=== PATIENT | male | born 1980 | race Caucasian/White ===

== ENCOUNTER 2024-03-09 22:55 | Emergency (ER) | payer OTHER ==
[2024-03-10] MEDS ORDERED: METOCLOPRAMIDE 10 MG/2mL INJ ONE (00:18)
[2024-03-10] MEDS ORDERED: DIPHENHYDRAMINE 50 MG/ML VIAL ONE (00:18)
[2024-03-10 00:49] LABS: Absolute Lymphocytes (CBC) 0.8 K/uL (0.7-4.9); Absolute Neutrophil 5.4 K/uL (1.8-8.0); Basophils % 0.1 % (0-1.3); Eosinophils % 0.2 % (0-4.4); Hematocrit 41.6 % (39.6-49.0); Hemoglobin 14.5 g/dL (13.6-17.9); Lymphocytes % 11.2 % (15.3-44.8); MCH 30.3 pg (27.0-35.0); MCHC 34.8 g/dL (32.0-36.0); MCV 86.9 fL (80-100); MPV 7.8 fL (7.6-11.3); Monocytes % 14.4 % (3.3-12.3); Neutrophils % 74.1 % (41.7-73.7); Nucleated Red Blood Cells % 0.2 % (0-0); Platelets 178 thou/uL (152-406); RBC Red Blood Cell Count 4.78 M/uL (4.33-5.43); Red Cell Distribution Width 14.2 % (12.1-15.2)
[2024-03-10 00:51] LABS: PT Prothrombin Time 12.9 SECONDS (9.4-12.5); Protime INR 1.18
[2024-03-10 01:11] LABS: SARS-CoV-2 Antigen CONTROL BLUE LINE VIS/BG OK
[2024-03-10 01:12] LABS: SARS-CoV-2 Antigen Rapid Res Positive (Negative)
[2024-03-10 01:28] LABS: Albumin 4.1 g/dL (3.4-5.0); Albumin/Globulin Ratio 1.2 (1.1-1.8); Bilirubin Total 0.9 mg/dL (0.2-1.0); Globulin 3.3 g/dL (2.3-3.5); Protein, Total 7.4 g/dL (6.4-8.2); Troponin High Sensitivity 5.1 pg/mL (<58.9)
[2024-03-10] MEDS ORDERED: NA CHLORIDE 0.9% 1,000 ML ONE (01:37)
--- NOTE | 2024-03-10 02:19 | EDPHYS ---
Physician Documentation [facility] Name: Brady Harrell Age: 43 yrs Sex: Male : 1980 Arrival Date: 03/09/2024 Time: 22:55 Bed 13 Private MD: ED Physician Eliezer Rosas HPI: 03/10 00:07 This 43 yrs old Male presents to ER via Ambulatory with complaints of Shortness Of rt Breath, Fever, Cough. 00:07 Patient presents to the ED with cough, nasal congestion, subjective fevers starting rt yesterday. Denies chest pain, difficulty breathing. Denies other acute complaints, symptoms are moderate in severity, no other aggravating or alleviating factors.. Historical: - Allergies: 03/09 23:14 PENICILLINS; as6 - PMHx: 23:14 Asthma; lymphomia; as6 - PSHx: 23:14 Appendectomy; Tonsillectomy; as6 - Immunization history:: Adult Immunizations up to date. - Infectious Disease History:: Denies. - Social history:: Smoking status: Patient denies any tobacco usage or history of. - Family history:: not pertinent. ROS: 03/10 00:07 Abdomen/GI: Negative for abdominal pain, nausea, vomiting, diarrhea, and constipation, rt MS/Extremity: Negative for injury and deformity, Skin: Negative for injury, rash, and discoloration, Neuro: Negative for headache, weakness, numbness, tingling, and seizure, Constitutional: Positive for fever, malaise, ENT: Positive for rhinorrhea, Negative for sore throat, Respiratory: Positive for cough, Negative for shortness of breath, Exam: 00:07 Constitutional: This is a well developed, well nourished patient who is awake, alert, rt and in no acute distress. Head/Face: Normocephalic, atraumatic. Chest/axilla: Normal chest wall appearance and motion. Nontender with no deformity. No lesions are appreciated. Cardiovascular: Regular rate and rhythm with a normal S1 and S2. No gallops, murmurs, or rubs. Normal PMI, no JVD. No pulse deficits. Respiratory: Lungs have equal breath sounds bilaterally, clear to auscultation and percussion. No rales, rhonchi or wheezes noted. No increased work of breathing, no retractions or nasal flaring. Abdomen/GI: Soft, non-tender, with normal bowel sounds. No distension or tympany. No guarding or rebound. No evidence of tenderness throughout. Skin: Warm, dry with normal turgor. Normal color with no rashes, no lesions, and no evidence of cellulitis. MS/ Extremity: Pulses equal, no cyanosis. Neurovascular intact. Full, normal range of motion. Neuro: Awake and alert, GCS 15, oriented to person, place, time, and situation. Cranial nerves II-XII grossly intact. Motor strength 5/5 in all extremities. Sensory grossly intact. Cerebellar exam normal. Normal gait. 00:53 ECG was reviewed by the Attending Physician. rt Vital Signs: 03/09 23:13 BP 141 / 93; Pulse 110; Resp 18 S; Temp 100.1(O); Pulse Ox 94% on R/A; Weight 99.79 kg as6 (R); Height 5 ft. 11 in. (R); Pain 0/10; 03/10 00:30 BP 143 / 101; Pulse 100; Resp 24 S; Pulse Ox 95% on R/A; jw7 01:30 BP 138 / 93; Pulse 99; Resp 23 S; Pulse Ox 94% on R/A; jw7 02:31 BP 119 / 74; Pulse 97; Resp 19 S; Temp 98.9(O); Pulse Ox 98% on R/A; jw7 03/09 23:13 Body Mass Index 30.68 (99.79 kg, 180.34 cm) as6 03/09 23:13 Pain Scale: Adult as6 MDM: 03/09 23:22 Patient medically screened. rt 03/10 01:42 Differential diagnosis: Viral infection, pneumonia, COVID, flu, dehydration. Antibiotic rt administration: Not indicated, the patient does not have an appreciated infiltrate. Data reviewed: vital signs, nurses notes, lab test result(s), EKG, radiologic studies. Consideration of Admission/Observation Escalation of care including admission/observation considered. Patient with normal oxygenation, no signs of bacterial infection, symptoms likely due to COVID-19. Patient is found to have elevated creatinine, likely due to poor p.o. intake. I discussed this at length with the patient. Do not believe that he requires admission for LUIS at this time, was given a bag of fluids, structured to increase oral intake and to have labs repeated as a follow-up.. I considered the following discharge prescriptions or medication management in the emergency department Medications were administered in the Emergency Department. See MAR. Independent interpretation of the following test(s) in the Emergency Department X-Ray: My interpretation is No pneumonia seen on my interpretation of x-ray images. Care significantly affected by the following chronic conditions: Asthma. Counseling: I had a detailed discussion with the patient and/or guardian regarding the historical points, exam findings, and any diagnostic results supporting the discharge/admit diagnosis, lab results, radiology results, the need for outpatient follow up, to return to the emergency department if symptoms worsen or persist or if there are any questions or concerns that arise at home. Response to treatment: the patient's symptoms have markedly improved after treatment. 03/09 23:29 Order name: CBC with Diff; Complete Time: 01: rt 03/09 23:29 Order name: CMP; Complete Time: : rt 03/09 23:29 Order name: Lactate w/ 2H reflex if indic.; Complete Time: rt 03/09 23:29 Order name: Protime (+inr); Complete Time: : rt 03/09 23:29 Order name: Ptt, Activated; Complete Time: : rt 03/09 23:29 Order name: Troponin High Sensitivity; Complete Time: : rt 03/09 23:29 Order name: BNP; Complete Time: : rt 03/09 23:29 Order name: SARS RAPID; Complete Time: 01: rt 03/09 23:29 Order name: Influenza Screen (a \T\ B); Complete Time: : rt 03/10 00:59 Order name: Glucose, Ancillary Testing; Complete Time: 01:09 EDMS 03/09 23:29 Order name: Chest Single View XRAY rt 03/09 23:29 Order name: EKG; Complete Time: 23:30 rt 03/09 23:29 Order name: Accucheck; Complete Time: 00:49 rt 03/09 23:29 Order name: Cardiac monitoring; Complete Time: 00:49 rt 03/09 23:29 Order name: EKG - Nurse/Tech; Complete Time: 00:49 rt 03/09 23:29 Order name: IV Saline Lock - Large Bore; Complete Time: 00:30 rt 03/09 23:29 Order name: Labs collected and sent; Complete Time: rt 03/09 23:29 Order name: O2 Per Protocol; Complete Time: rt 03/09 23:29 Order name: O2 Sat Monitoring; Complete Time: rt 03/09 23:29 Order name: Vital Signs; Complete Time: : rt EC:53 Rate is 103 beats/min. Rhythm is regular, Sinus tachycardia with No ectopy, Right rt bundle branch block. QRS [place] is Normal. [place] interval is normal. QRS interval is normal. QT interval is normal. No Q waves. No ST changes noted. Interpreted by me. Administered Medications: 00:30 Drug: metoCLOPramide IVP 10 mg IVP once; over 1 to 2 minutes Route: IVP; Site: right [facility] antecubital; 01:43 Follow up: Response: No adverse reaction; Marked relief of symptoms jw7 00:30 Drug: diphenhydrAMINE IVP 25 mg IVP once Route: IVP; Site: right antecubital; jw7 01:43 Follow up: Response: No adverse reaction; Marked relief of symptoms jw7 01:40 Drug: NS 0.9% IV 1000 ml IV at 1 bolus Per protocol; 1000 mL bolus Route: IV; Rate: 1 jw7 bolus; Site: right antecubital; 02:30 Follow up: Response: No adverse reaction; IV Status: Completed infusion; IV Intake: jw7 1000ml Disposition Summary: 03/10/24 02:18 Discharge Ordered Notes: Location: Home rt Problem: new rt Symptoms: have improved rt Condition: Stable rt Diagnosis - COVID-19 rt - Dehydration rt - Hypokalemia rt Followup: rt - With: Private Physician - When: 2 - 3 days - Reason: Discharge Instructions: - Discharge Summary Sheet rt - Dehydration, Adult rt - Hypokalemia rt - COVID-19 rt Forms: - Medication Reconciliation Form rt - Antibiotic Education rt - Prescription Opioid Use rt - Patient Portal Instructions rt - Leadership Thank You Letter rt Prescriptions: - Potassium Chloride 20 meq Oral Packet - take 1 packet ORAL route once daily 1 packet in 6 (six) ounces of water or rt juice; Take after meal; 3 packet; Refills: 0, Product Selection Permitted Signatures: Dispatcher [facility] Rene Barrios RN RN as6 Waits, Rosie, RN RN jw7 Eliezer Rosas MD MD rt
--- NOTE | 2024-03-10 02:19 | ER ---
Nurse's Notes [facility] Name: Brady Harrell Age: 43 yrs Sex: Male : 1980 Arrival Date: 03/09/2024 Time: 22:55 Bed 13 Private MD: Diagnosis: COVID-19;Dehydration;Hypokalemia Presentation: 03/09 23:15 Chief complaint: Patient states: weakness, fever, fatigue that started yesterday. as6 Coronavirus screen: At this time, the client does not indicate any symptoms associated with coronavirus-19. Ebola Screen: No symptoms or risks identified at this time. Initial Sepsis Screen: Does the patient meet any 2 criteria? HR > 90 bpm. Does the patient have a suspected source of infection? No. Patient's initial sepsis screen is negative. Risk Assessment: Do you want to hurt yourself or someone else? Patient reports no desire to harm self or others. Onset of symptoms was March 08, 2024. 23:15 Acuity: LYNNETTE 2 as6 23:15 Method Of Arrival: Ambulatory as6 Historical: - Allergies: 23:14 PENICILLINS; as6 - PMHx: 23:14 Asthma; lymphomia; as6 - PSHx: 23:14 Appendectomy; Tonsillectomy; as6 - Immunization history:: Adult Immunizations up to date. - Infectious Disease History:: Denies. - Social history:: Smoking status: Patient denies any tobacco usage or history of. - Family history:: not pertinent. Screenin:21 [facility] ED Fall Risk Assessment (Adult) History of falling in the last 3 months, jw7 including since admission No falls in past 3 months (0 pts) Confusion or Disorientation No (0 pts) Intoxicated or Sedated No (0 pts) Impaired Gait No (0 pts) Mobility Assist Device Used No (0 pt) Altered Elimination No (0 pt) Score/Fall Risk Level 0 - 2 = Low Risk Oriented to surroundings, Maintained a safe environment, Educated pt \T\ family on fall prevention, incl call for assistance when getting out of bed. Abuse screen: Denies threats or abuse. Denies injuries from another. Nutritional screening: No deficits noted. Tuberculosis screening: No symptoms or risk factors identified. Assessment: 23:30 General: Appears in no apparent distress. uncomfortable, Behavior is calm, cooperative, jw7 appropriate for age. Pain: Denies pain. Neuro: Level of Consciousness is awake, alert, obeys commands, Oriented to person, place, time, situation, Appropriate for age. Cardiovascular: Reports shortness of breath, Heart tones S1 S2 present Capillary refill < 3 seconds Clubbing of nail beds is absent JVD is absent Patient's skin is warm and dry. Rhythm is sinus tachycardia. Respiratory: Reports shortness of breath cough that is Airway is patent Trachea midline Respiratory effort is even, unlabored, Respiratory pattern is regular, symmetrical, Breath sounds are clear bilaterally. GI: Abdomen is flat, non-distended, Bowel sounds present X 4 quads. Abd is soft and non tender X 4 quads. : No deficits noted. No signs and/or symptoms were reported regarding the genitourinary system. EENT: No deficits noted. No signs and/or symptoms were reported regarding the EENT system. Derm: Skin is intact, is healthy with good turgor, Skin is dry, Skin is normal, Skin temperature is warm. Musculoskeletal: Circulation, motion, and sensation intact. Range of motion: intact in all extremities. 03/10 00:30 Reassessment: Patient appears in no apparent distress at this time. No changes from jw7 previously documented assessment. Patient and/or family updated on plan of care and expected duration. Pain level reassessed. Patient is alert, oriented x 3, equal unlabored respirations, skin warm/dry/pink. 01:30 Reassessment: Patient appears in no apparent distress at this time. Patient and/or jw7 family updated on plan of care and expected duration. Pain level reassessed. Patient is alert, oriented x 3, equal unlabored respirations, skin warm/dry/pink. Patient states feeling better. 02:30 Reassessment: Patient appears in no apparent distress at this time. No changes from jw7 previously documented assessment. Patient and/or family updated on plan of care and expected duration. Pain level reassessed. Patient is alert, oriented x 3, equal unlabored respirations, skin warm/dry/pink. Vital Signs: 03/09 23:13 BP 141 / 93; Pulse 110; Resp 18 S; Temp 100.1(O); Pulse Ox 94% on R/A; Weight 99.79 kg as6 (R); Height 5 ft. 11 in. (R); Pain 0/10; 03/10 00:30 BP 143 / 101; Pulse 100; Resp 24 S; Pulse Ox 95% on R/A; jw7 01:30 BP 138 / 93; Pulse 99; Resp 23 S; Pulse Ox 94% on R/A; jw7 02:31 BP 119 / 74; Pulse 97; Resp 19 S; Temp 98.9(O); Pulse Ox 98% on R/A; jw7 03/09 23:13 Body Mass Index 30.68 (99.79 kg, 180.34 cm) as6 03/09 23:13 Pain Scale: Adult as6 ED Course: 03/09 22:59 Patient arrived in ED. mr 23:11 Rosie Pastrana, RN is Primary Nurse. jw7 23:13 Arm band placed on. as6 23:16 Triage completed. as6 23:21 Eliezer Rosas MD is Attending Physician. rt 23:21 Patient has correct armband on for positive identification. Bed in low position. Call jw7 light in reach. Provided Education on: use of call light. 23:47 Chest Single View XRAY In Process Unspecified. EDMS 03/10 02:30 No provider procedures requiring assistance completed. IV discontinued, intact, jw7 bleeding controlled, No redness/swelling at site. Pressure dressing applied. Administered Medications: 00:30 Drug: metoCLOPramide IVP 10 mg IVP once; over 1 to 2 minutes Route: IVP; Site: right jw7 antecubital; 01:43 Follow up: Response: No adverse reaction; Marked relief of symptoms jw7 00:30 Drug: diphenhydrAMINE IVP 25 mg IVP once Route: IVP; Site: right antecubital; jw7 01:43 Follow up: Response: No adverse reaction; Marked relief of symptoms jw7 01:40 Drug: NS 0.9% IV 1000 ml IV at 1 bolus Per protocol; 1000 mL bolus Route: IV; Rate: 1 jw7 bolus; Site: right antecubital; 02:30 Follow up: Response: No adverse reaction; IV Status: Completed infusion; IV Intake: jw7 1000ml Medication: 02:30 VIS not applicable for this client. jw7 Intake: 02:30 IV: 1000ml; Total: 1000ml. jw7 Outcome: 02:18 Discharge ordered by . rt 02:30 Discharged to home ambulatory, jw7 02:30 Condition: stable 02:30 Discharge instructions given to patient, Instructed on discharge instructions, follow up and referral plans. medication usage, Demonstrated understanding of instructions, follow-up care, medications, Prescriptions given X 1, 02:31 Patient left the ED. jw7 Signatures: Dispatcher [employer] JoshuaPinky, Reg Reg mr Rene Baer RN RN as6 Rosie Pastrana RN RN jw7 Eliezer Rosas MD MD rt
[2024-03-10 02:51] VITALS: BP 119/74; TEMP 98.9; O2SAT 98
--- NOTE | 2024-03-10 17:02 | RAD REPORT ---
EXAM DESCRIPTION: RAD - Chest Single View - 03/09/2024 11:46 pm CLINICAL HISTORY: COUGH COMPARISON: 09/27/2018 FINDINGS: Single frontal radiograph view of the chest. Cardiomediastinal silhouette: Normal size and contour. Lungs: No consolidation, pneumothorax, or pleural effusion. Low lung volumes. Bones: No acute osseous abnormality. Upper abdomen: No abnormality identified. IMPRESSION: 1. No acute pulmonary process identified. Electronically signed by: Arturo Youngblood DO 03/10/2024 12:01 AM CDT 4ZDM Due to temporary technical issues with the PACS/Fluency reporting system, reports are being signed by the in house radiologists without review as a courtesy to insure prompt reporting. The interpreting radiologist is fully responsible for the content of the report.
== END 2024-03-10 02:31 | disposition home or self-care (01) ==
LOC: ER 22:55
DX: U07.1 COVID-19 (principal); E86.0 Dehydration; E87.6 Hypokalemia; Z88.0 Allergy status to penicillin
CPT/HCPCS: 96361; 85025; 36415; 85610; 82947; 83605; 85730; 84484; 80053; 83880; 87804 ×2; 71045; 96375; 96374; 99284; 87811; J2765; J1200; J7030

== ENCOUNTER 2024-09-18 22:34 | Emergency (ER) | payer OTHER ==
--- NOTE | 2024-09-18 23:09 | EDPHYS ---
Physician Documentation [facility] Name: Brady Harrell Age: 43 yrs Sex: Male : 1980 Arrival Date: 09/18/2024 Time: 22:34 Bed IW2 Private MD: ED Physician Kirk Danielle HPI: 09/18 23:08 This 43 yrs old Male presents to ER via Ambulatory with complaints of POSSIBLE SHINGLES kb FLARE UP. 23:08 Pt is a 43 year old male who presents for rash to right side of abd and back that kb started 4 days ago and has been painful. Denies itching, fever. . Historical: - Allergies: 23:06 PENICILLINS; br2 - PMHx: 23:06 Asthma; lymphomia; br2 - PSHx: 23:06 Appendectomy; Tonsillectomy; br2 - Immunization history:: Adult Immunizations Adult Immunizations not up to date. - Infectious Disease History:: Denies. - Social history:: Smoking status: Patient denies any tobacco usage or history of. Patient uses alcohol, occasionally. ROS: 23:06 Constitutional: As per HPI kb Exam: 23:06 Constitutional: This is a well developed, well nourished patient who is awake, alert, kb and in no acute distress. Head/Face: Normocephalic, atraumatic. ENT: Moist Mucous membranes Cardiovascular: Regular rate Respiratory: Respirations even and unlabored. No increased work of breathing. Talking in full sentences MS/ Extremity: Pulses equal, no cyanosis. Neurovascular intact. Full, normal range of motion. Neuro: Awake and alert, GCS 15, oriented to person, place, time, and situation. 23:06 Skin: consistent with zoster, on the posterior aspect of right lateral abdomen and right upper quadrant, Vital Signs: 22:58 BP 143 / 84; Pulse 18; Resp 18; Temp 97.2; Pulse Ox 99% on R/A; Weight 99.79 kg; Height br2 5 ft. 11 in. ; Pain 8/10; 22:58 Body Mass Index 30.68 (99.79 kg, 180.34 cm) br2 22:58 Pain Scale: Adult br2 MDM: 22:37 Medical Screening Exam initiated kb 23:07 Differential diagnosis: shingles, impetigo, abscess, cellulitis. Data reviewed: vital kb signs, nurses notes. Counseling: I had a detailed discussion with the patient and/or guardian regarding the historical points, exam findings, and any diagnostic results supporting the discharge/admit diagnosis, the need for outpatient follow up, a family practitioner, to return to the emergency department if symptoms worsen or persist or if there are any questions or concerns that arise at home. Administered Medications: 23:23 Drug: Valtrex PO 1000 mg PO once Route: PO; br2 23:23 Follow up: Response: Medication administered at discharge. br2 23:23 Drug: Hydrocodone-Acetaminophen PO (7.5 mg-325 mg) 1 tabs PO once Route: PO; br2 23:23 Follow up: Response: Medication administered at discharge. br2 23:23 Follow up: Response: Medication administered at discharge. br2 Disposition Summary: 09/18/24 23:08 Discharge Ordered Notes: Location: Home kb Condition: Stable kb Diagnosis - Zoster without complications kb Followup: kb - With: Emergency Department - When: As needed - Reason: Worsening of condition Followup: kb - With: Private Physician - When: 2 - 3 days - Reason: Recheck today's complaints, Continuance of care, Re-evaluation by your physician Discharge Instructions: - Discharge Summary Sheet kb - Shingles, [id number] kb Forms: - Medication Reconciliation Form kb - Antibiotic Education kb - Prescription Opioid Use kb - Patient Portal Instructions kb - Leadership Thank You Letter kb Prescriptions: - Valtrex 1 gram Oral tablet - take 1 tablet ORAL route every 8 hours for 7 days; 21 tablet; Refills: 0, kb Product Selection Permitted - acetaminophen-codeine 300-30 mg Oral tablet - take 1 tablet ORAL route every 6 hours As needed; 12 tablet; Refills: 0, kb Product Selection Permitted Addendum: 09/26/2024 09:11 I was immediately available for consultation during this patient's visit. I did not e c2 personally see the patient or discuss the patient with the DIANE. . Signatures: Lakshmi Levi FNP-C FNP-Kirk Alcantar MD MD ec2 Michelle Kelsey RN RN br2
--- NOTE | 2024-09-18 23:09 | ER ---
Nurse's Notes [facility] Name: Brady Harrell Age: 43 yrs Sex: Male : 1980 Arrival Date: 09/18/2024 Time: 22:34 Bed IW2 Private MD: Diagnosis: Zoster without complications Presentation: 09/18 22:58 Chief complaint: Patient states: RASH TO RUQ AND RT LOWER BACK, PAIN. Coronavirus br2 screen: Client denies travel out of the [place] in the last 14 days. Ebola Screen: Patient denies exposure to infectious person. Initial Sepsis Screen: Does the patient meet any 2 criteria? No. Patient's initial sepsis screen is negative. Does the patient have a suspected source of infection? No. Patient's initial sepsis screen is negative. Risk Assessment: Do you want to hurt yourself or someone else? Patient reports no desire to harm self or others. Onset of symptoms was September 15, 2024. 22:58 Method Of Arrival: Ambulatory br2 22:58 Acuity: LYNNETTE 4 br2 Triage Assessment: 22:58 General: Appears uncomfortable, Behavior is calm, cooperative. Pain: Complains of pain br2 in right upper quadrant Pain radiates to right mid back Pain currently is 10 out of 10 on a pain scale. EENT: No signs and/or symptoms were reported regarding the EENT system. Neuro: Level of Consciousness is awake, alert, obeys commands, Oriented to person, place, time, situation. Cardiovascular: Capillary refill < 3 seconds. Respiratory: Airway is patent Respiratory effort is even, unlabored, Respiratory pattern is regular, symmetrical. GI: Reports lower abdominal pain. : No signs and/or symptoms were reported regarding the genitourinary system. Derm: Rash noted that is BLISTERS Reports burning, pain. Historical: - Allergies: 23:06 PENICILLINS; br2 - PMHx: 23:06 Asthma; lymphomia; br2 - PSHx: 23:06 Appendectomy; Tonsillectomy; br2 - Immunization history:: Adult Immunizations Adult Immunizations not up to date. - Infectious Disease History:: Denies. - Social history:: Smoking status: Patient denies any tobacco usage or history of. Patient uses alcohol, occasionally. Screenin:58 [facility] ED Fall Risk Assessment (Adult) History of falling in the last 3 months, br2 including since admission No falls in past 3 months (0 pts) Confusion or Disorientation No (0 pts) Intoxicated or Sedated No (0 pts) Impaired Gait No (0 pts) Mobility Assist Device Used No (0 pt) Altered Elimination No (0 pt) Score/Fall Risk Level 0 - 2 = Low Risk Oriented to surroundings. Abuse screen: Denies threats or abuse. Denies injuries from another. Nutritional screening: No deficits noted. Tuberculosis screening: No symptoms or risk factors identified. Vital Signs: 22:58 BP 143 / 84; Pulse 18; Resp 18; Temp 97.2; Pulse Ox 99% on R/A; Weight 99.79 kg; Height br2 5 ft. 11 in. ; Pain 8/10; 22:58 Body Mass Index 30.68 (99.79 kg, 180.34 cm) br2 22:58 Pain Scale: Adult br2 ED Course: 22:37 Patient arrived in ED. jj6 22:37 Laksh[facility]C [facility]. kb 22:37 Kirk Danielle MD is Attending Physician. kb 22:58 Patient has correct armband on for positive identification. Provided Education on: PLAN br2 OF CARE. 22:58 Arm band placed on. br2 23:06 Triage completed. br2 23:19 No provider procedures requiring assistance completed. Patient did not have IV access br2 during this emergency room visit. Administered Medications: 23:23 Drug: Valtrex PO 1000 mg PO once Route: PO; br2 23:23 Follow up: Response: Medication administered at discharge. br2 23:23 Drug: Hydrocodone-Acetaminophen PO (7.5 mg-325 mg) 1 tabs PO once Route: PO; br2 23:23 Follow up: Response: Medication administered at discharge. br2 23:23 Follow up: Response: Medication administered at discharge. br2 Medication: 23:19 VIS not applicable for this client. br2 Outcome: 23:08 Discharge ordered by . kb 23:19 Discharged to home ambulatory, br2 23:19 Condition: good 23:19 Discharge instructions given to patient, Instructed on discharge instructions, follow up and referral plans. medication usage, Demonstrated understanding of instructions, follow-up care, medications, Prescriptions given X 2, 23:24 Patient left the ED. br2 Signatures: Lakshmi Levi FNP-C ACQUISITION EDITOR-Ckb Diane Daley jj6 Michelle Kelsey, RN RN br2
[2024-09-18] MEDS ORDERED: VALACYCLOVIR 500 MG TAB ONE (23:11)
[2024-09-18] MEDS ORDERED: HYDROCODONE/APAP 7.5/325 MG TAB ONE (23:12)
[2024-09-20 16:21] VITALS: BP 143/84; TEMP 97.2; O2SAT 99
== END 2024-09-18 23:24 | disposition home or self-care (01) ==
LOC: ER 22:34
DX: B02.9 Zoster without complications (principal); J45.909 Unspecified asthma, uncomplicated; Z88.0 Allergy status to penicillin
CPT/HCPCS: 99283